=== PATIENT | male | born 1945 | race Caucasian/White ===

== ENCOUNTER 2023-02-03 08:25 | Day surgery (SDC) | payer MEDICARE, OTHER, SELFPAY ==
[2023-01-28 09:04] VITALS: BMI 28.9
--- NOTE | 2023-01-31 08:01 | MHC.SHP ---
Pre-Procedural Eval Section A Date of Service: 01/31/23 The patient is an INPATIENT: No Changes since office visit: No Cold of Flu in the past 2 weeks, No New Medical Problems, No Changes in Medication and No Patient answered all questions The History & Physical has been completed within 30 days and I have reviewed it.: Yes Section B Chief Complaint: Age-related nuclear cataract, left eye Allergies: Allergies Allergy/AdvReac Type Severity Reaction Status Date / Time No Known Allergies Allergy Verified 01/28/23 08:47 Plan Diagnosis/Plan: Unchanged I have reviewed the history and physical and performed a pertinent physical examination on my patient. No changes have occurred unless specified. Time Spent With Patient Time: Total time managing care of this patient today ____ minutes.
[2023-02-03 10:16] VITALS: BP 147/65; PULSE 54; RESP 16; TEMP 36.4; O2SAT 99
--- NOTE | 2023-02-03 10:17 | P.CONAN_ITS ---
[facility] Past Medical History Medical History (Updated 01/28/23 @ 09:06 by Zoey Srivastava RN) [place] (hard of hearing) Basal cell carcinoma Gout Osteoarthritis Elevated cholesterol DVT (deep venous thrombosis) Chronic renal insufficiency Bladder cancer Myocardial infarction CAD (coronary artery disease) Family History Family history of problems with anesthesia: No Surgical History Surgical History (Updated 01/28/23 @ 09:02 by Zoey Srivastava RN) Hx of transurethral destruction of bladder lesion H/O colonoscopy Hx of appendectomy History of total replacement of both hip joints History of left nephrectomy History of back surgery History of inferior vena caval filter placement Hx of radical prostatectomy Hx of heart artery stent History of Problems with Anesthesia: No Social History Social History (Updated 01/28/23 @ 08:37 by Zoey Srivastava RN) Are you a primary foster care case manager to a significant other at home: No Do you presently have visiting nurse or other home services: No Patient Tobacco Use Status: Former Tobacco user Quit Date: ~age 37 Tobacco use type: Cigarette Use of substances other than those prescribed or required for medical reasons: No Have you been hit, kicked, punched, or otherwise hurt by someone within the past year? If so, by whom?: No Are you DNR?: No Advance Directives Information Provided: Yes (as above noted-will bring copy DOS) Advance Directives on File: No Recently lost weight without trying: No Eating poorly because of decreased appetite: No Nutrition Risks: Surgical patient >75years Poor oral hygiene: No (upper & lower full denture) Meds Allergies Allergy/AdvReac Type Severity Reaction Status Date / Time No Known Allergies Allergy Verified 01/28/23 08:47 Active Medications: Current Medications Povidone Iodine (Povidone Iodine 5 % Ophth Soln 30 Ml Bottle) 1 appl EYE-LEFT PREOP PRN PRN Reason: Pre-Op Surgical Implant Prophy Home Medications Medication Instructions Recorded Confirmed Last Taken Type acetaminophen 650 mg 1,300 mg PO Q8H 01/28/23 01/28/23 Unknown History tablet,extended release aspirin 81 mg tablet,delayed 81 mg PO DAILY 01/28/23 01/28/23 Unknown History release atorvastatin 40 mg tablet 40 mg PO DAILY 01/28/23 01/28/23 Unknown History calcitriol 0.25 mcg capsule 0.25 mcg PO Q2D 01/28/23 01/28/23 Unknown History cholecalciferol (vitamin D3) 25 25 mcg PO DAILY 01/28/23 01/28/23 Unknown History mcg (1,000 unit) capsule (Vitamin D3) cyanocobalamin (vitamin B-12) 1,000 mcg PO DAILY 01/28/23 01/28/23 Unknown History 1,000 mcg tablet (Vitamin B-12) lisinopril 5 mg tablet 5 mg PO DAILY 01/28/23 01/28/23 Unknown History triamcinolone acetonide 0.025 % 1 appl topical DAILY PRN itch 01/28/23 01/28/23 Unknown History topical cream Exam Exam Date and Time: February 03, 2023 1017 Height,Weight and Vital Signs: Height 6 ft Weight 96.615 kg Airway Mallampati Class: II TM Dist: >3cm Denture: Upper and Lower Assessment and Plan Assessment Anesthesia Assessment: Anesthesia Plan Discussed and Chart Reviewed Final Anesthetic Review Family History of Problems with Anesthesia: No History of Problems with Anesthesia: No NPO: Yes ASA Class: III Final Preanesthetic Review: No Changes in Pt Med Stat, Meds/Allgs Chart Reviewed, Consent Obtained/Reviewed and Anes Risks/Benef Reviewed Patient Risk: Intermediate Procedure Risk: Low Anesthetic Plan Anesthetic Plan: MAC: Disposition: Standard PACU
[2023-02-03] MEDS: Tetracaine HCl/PF 0.5% Oph Sol 4 ML DROPS 1 DROP EYE-LEFT (10:24)
[2023-02-03] MEDS: Cyclopentolate 1 % Ophth Sol 2 ML DRPBTL 1 DROP EYE-LEFT ×3 (10:25→10:30)
[2023-02-03] MEDS: Tropicamide 1 % Ophth Sol 3 ML BTL 1 DROP EYE-LEFT ×3 (10:25→10:31)
[2023-02-03] MEDS: Ketorolac Tromethamine 0.5% Op 5 ML DROPS 1 DROP EYE-LEFT ×3 (10:26→10:31)
[2023-02-03] MEDS: Phenylephrine HCL 2.5% Oph SoL 2 ML BOTTLE 1 DROP EYE-LEFT ×3 (10:27→10:32)
--- NOTE | 2023-02-03 10:36 | HO.PNOPHT ---
Ophthalmology Procedure Procedure Date of Service: 02/03/23 Ophthalmology Viscoelastic: Healon Duet Dual Pack Pro Ophthalmology Lenses: TECNIS [id number] (22.5) Procedure Notes: PREOPERATIVE DIAGNOSIS: Decreased visual acuity left eye secondary to cataract POSTOPERATIVE DIAGNOSIS: Same PROCEDURE: Left cataract extraction with intraocular lens insertion SURGEON: Cody Dang M.D. ANESTHESIA: Topical/MAC ESTIMATED BLOOD LOSS: None COMPLICATIONS: None After obtaining informed consent, the patient was brought to the operation room suite and placed in the supine position. After adequate sedation per anesthesia, topical drops of Tetracaine were given to the left eye. The eye was then prepped and draped in the usual sterile fashion. The operating room microscope was then positioned over the operative eye and a lid speculum placed. A paracentesis was created. Viscoelastic was then instilled into the anterior chamber. A three plane incision was then created temporally, utilizing a 2.85 mm keratome. Capsulotomy forceps were then utilized to create a circular tear capsulotomy. Hydrodissection and hydrodelineation were carried out until adequate mobilization of the nucleus occurred. Phacoemulsification was then utilized to remove the dense central nucleus followed by removal of the cortical material utilizing the automated aspiration irrigation unit. Viscoat elastic was instilled into the posterior capsular bag followed by placement of a posterior chamber intraocular lens without difficulty. The residual Viscoat elastic was then removed utilizing the automated IA machine. The wound was check and found to be watertight. The patient tolerated the procedure well and the lid speculum was removed. Intracameral injection of Vigamox 0.1 mL followed by a subtenon injection of Kenalog-40 0.2 mL were administered. The patient will be seen in the a.m.
[2023-02-03 10:57] VITALS: BP 154/62; PULSE 60; RESP 16; TEMP 36.2; O2SAT 100
== END 2023-02-03 11:16 | disposition home or self-care (01) ==
PROVIDERS: PCP Internal Medicine; Visit Provider Ophthalmology
PROC: (CPT 66985; principal; 2023-02-03 10:50)
DX: H25.12 Age-related nuclear cataract, left eye (principal); H52.4 Presbyopia; H43.392 Other vitreous opacities, left eye; H18.413 Arcus senilis, bilateral; I25.10 Atherosclerotic heart disease of native coronary artery without angina pectoris; Z95.5 Presence of coronary angioplasty implant and graft; I25.2 Old myocardial infarction; E78.00 Pure hypercholesterolemia, unspecified; C67.9 Malignant neoplasm of bladder, unspecified; Z79.82 Long term (current) use of aspirin; Z79.899 Other long term (current) drug therapy; Z98.890 Other specified postprocedural states; Z87.891 Personal history of nicotine dependence
CPT/HCPCS: 66984; J2250; J3010; J3301; V2632

== ENCOUNTER 2023-02-10 09:07 | Day surgery (SDC) | payer MEDICARE, OTHER, SELFPAY ==
[2023-01-28 09:07] VITALS: BMI 28.9
--- NOTE | 2023-02-07 07:55 | MHC.SHP ---
Pre-Procedural Eval Section A Date of Service: 02/07/23 The patient is an INPATIENT: No Changes since office visit: No Cold of Flu in the past 2 weeks, No New Medical Problems, No Changes in Medication and No Patient answered all questions The History & Physical has been completed within 30 days and I have reviewed it.: Yes Section B Chief Complaint: Age-related nuclear cataract, right eye Allergies: Allergies Allergy/AdvReac Type Severity Reaction Status Date / Time No Known Allergies Allergy Verified 01/28/23 08:47 Plan Diagnosis/Plan: Unchanged I have reviewed the history and physical and performed a pertinent physical examination on my patient. No changes have occurred unless specified. Time Spent With Patient Time: Total time managing care of this patient today ____ minutes.
--- NOTE | 2023-02-07 09:46 | P.CONAN_ITS ---
Documented by User: Yani Xiao NP 02/07/23 09:50 HPI - Anesthesia Eval Consult details Narrative: 77yo M for Right Cataract Extraction IOL Insertion Medically cleared Left eye 02/03/23: Fent 50, Midaz 0.5 PMFSH Past Medical History Medical History [place]) Basal cell carcinoma Gout Osteoarthritis Elevated cholesterol DVT (deep venous thrombosis) Chronic renal insufficiency Bladder cancer Myocardial infarction CAD (coronary artery disease) Family History Family history of problems with anesthesia: No Surgical History Surgical History Hx of transurethral destruction of bladder lesion H/O colonoscopy Hx of appendectomy History of total replacement of both hip joints History of left nephrectomy History of back surgery History of inferior vena caval filter placement Hx of radical prostatectomy Hx of heart artery stent History of Problems with Anesthesia: No Social History Social History Are you a primary post acute care nurse practitioner to a significant other at home: No Do you presently have visiting nurse or other home services: No Patient Tobacco Use Status: Former Tobacco user Quit Date: ~age 37 Tobacco use type: Cigarette Use of substances other than those prescribed or required for medical reasons: No Are you DNR?: No Advance Directives Information Provided: Yes (as above noted-will bring copy DOS) Advance Directives on File: No Recently lost weight without trying: No Eating poorly because of decreased appetite: No Nutrition Risks: Surgical patient >75years Poor oral hygiene: No (upper & lower full denture) Meds Allergies Allergy/AdvReac Type Severity Reaction Status Date / Time No Known Allergies Allergy Verified 01/28/23 08:47 Home Medications Medication Instructions Recorded Confirmed Last Taken Type acetaminophen 650 mg 1,300 mg PO Q8H 01/28/23 01/28/23 Unknown History tablet,extended release aspirin 81 mg tablet,delayed 81 mg PO DAILY 01/28/23 01/28/23 Unknown History release atorvastatin 40 mg tablet 40 mg PO DAILY 01/28/23 01/28/23 Unknown History calcitriol 0.25 mcg capsule 0.25 mcg PO Q2D 01/28/23 01/28/23 Unknown History cholecalciferol (vitamin D3) 25 25 mcg PO DAILY 01/28/23 01/28/23 Unknown History mcg (1,000 unit) capsule (Vitamin D3) cyanocobalamin (vitamin B-12) 1,000 mcg PO DAILY 01/28/23 01/28/23 Unknown History 1,000 mcg tablet (Vitamin B-12) lisinopril 5 mg tablet 5 mg PO DAILY 01/28/23 01/28/23 Unknown History triamcinolone acetonide 0.025 % 1 appl topical DAILY PRN itch 01/28/23 01/28/23 Unknown History topical cream Exam Exam Date and Time: February 07, 2023 0946 Height,Weight and Vital Signs: Height 6 ft Weight 96.615 kg Assessment and Plan Assessment Anesthesia Assessment: Chart Reviewed Final Anesthetic Review Family History of Problems with Anesthesia: No History of Problems with Anesthesia: No Documented by User: Duyen Pitt MD 02/10/23 10:39 [facility] Past Medical History Medical History [place]) Basal cell carcinoma Gout Osteoarthritis Elevated cholesterol DVT (deep venous thrombosis) Chronic renal insufficiency Bladder cancer Myocardial infarction CAD (coronary artery disease) Surgical History Surgical History Hx of transurethral destruction of bladder lesion H/O colonoscopy Hx of appendectomy History of total replacement of both hip joints History of left nephrectomy History of back surgery History of inferior vena caval filter placement Hx of radical prostatectomy Hx of heart artery stent Social History Social History Are you a primary post acute care nurse practitioner to a significant other at home: No Do you presently have visiting nurse or other home services: No Patient Tobacco Use Status: Former Tobacco user Quit Date: ~age 37 Tobacco use type: Cigarette Use of substances other than those prescribed or required for medical reasons: No Are you DNR?: No Advance Directives Information Provided: Yes (as above noted-will bring copy DOS) Advance Directives on File: No Recently lost weight without trying: No Eating poorly because of decreased appetite: No Nutrition Risks: Surgical patient >75years Poor oral hygiene: No (upper & lower full denture) Meds Allergies Allergy/AdvReac Type Severity Reaction Status Date / Time No Known Allergies Allergy Verified 01/28/23 08:47 Home Medications Medication Instructions Recorded Confirmed Last Taken Type acetaminophen 650 mg 1,300 mg PO Q8H 01/28/23 01/28/23 Unknown History tablet,extended release aspirin 81 mg tablet,delayed 81 mg PO DAILY 01/28/23 01/28/23 Unknown History release atorvastatin 40 mg tablet 40 mg PO DAILY 01/28/23 01/28/23 Unknown History calcitriol 0.25 mcg capsule 0.25 mcg PO Q2D 01/28/23 01/28/23 Unknown History cholecalciferol (vitamin D3) 25 25 mcg PO DAILY 01/28/23 01/28/23 Unknown History mcg (1,000 unit) capsule (Vitamin D3) cyanocobalamin (vitamin B-12) 1,000 mcg PO DAILY 01/28/23 01/28/23 Unknown History 1,000 mcg tablet (Vitamin B-12) lisinopril 5 mg tablet 5 mg PO DAILY 01/28/23 01/28/23 Unknown History triamcinolone acetonide 0.025 % 1 appl topical DAILY PRN itch 01/28/23 01/28/23 Unknown History topical cream Exam Airway Mallampati Class: III (edentulous) TM Dist: >3cm Neck ROM: Full Denture: Upper and Lower Loose/Missing/Broken Teeth: Yes, Upper and Lower Heart: RRR Lungs: CTA Assessment and Plan Assessment Anesthesia Assessment: Anesthesia Plan Discussed Final Anesthetic Review NPO: Yes ASA Class: III Final Preanesthetic Review: Meds/Allgs Chart Reviewed, Consent Obtained/Reviewed and Anes Risks/Benef Reviewed Patient Risk: Intermediate Procedure Risk: Low Anesthetic Plan Anesthetic Plan: MAC: Disposition: Standard PACU
[2023-02-10 10:20] VITALS: BP 149/65; PULSE 56; RESP 19; TEMP 36.1; O2SAT 97
[2023-02-10] MEDS: Tetracaine HCl/PF 0.5% Oph Sol 4 ML DROPS 1 DROP EYE-RIGHT (10:32)
[2023-02-10] MEDS: Lactated Ringers 500 ML 50 ML IV (10:32)
[2023-02-10] MEDS: Ketorolac Tromethamine 0.5% Op 5 ML DROPS 1 DROP EYE-RIGHT ×3 (10:32→10:33)
[2023-02-10] MEDS: Phenylephrine HCL 2.5% Oph SoL 2 ML BOTTLE 1 DROP EYE-RIGHT ×3 (10:32→10:33)
[2023-02-10] MEDS: Cyclopentolate 1 % Ophth Sol 2 ML DRPBTL 1 DROP EYE-RIGHT ×3 (10:32→10:33)
[2023-02-10] MEDS: Tropicamide 1 % Ophth Sol 3 ML BTL 1 DROP EYE-RIGHT ×3 (10:32→10:33)
--- NOTE | 2023-02-10 10:57 | PC.NURSE ---
emptied urostomy for 200ml clear yellow urine
--- NOTE | 2023-02-10 11:40 | HO.PNOPHT ---
Ophthalmology Procedure Procedure Date of Service: 02/10/23 Ophthalmology Viscoelastic: Healjameel Duet Dual Pack Pro Ophthalmology Lenses: TECNIS [id number] (22.5) Procedure Notes: PREOPERATIVE DIAGNOSIS: Decreased visual acuity right eye secondary to cataract POSTOPERATIVE DIAGNOSIS: Same PROCEDURE: Right cataract extraction with intraocular lens insertion SURGEON: Cody Dang M.D. ANESTHESIA: Topical/MAC ESTIMATED BLOOD LOSS: None COMPLICATIONS: None After obtaining informed consent, the patient was brought to the operating room suite and placed in the supine position. After adequate sedation per anesthesia, topical drops of Tetracaine were given to the right eye. The eye was then prepped and draped in the usual sterile fashion. The operating room microscope was then positioned over the operative eye and a lid speculum placed. A paracentesis was created. Viscoelastic was then instilled into the anterior chamber. A three plane incision was then created temporally, utilizing a 2.85 mm keratome. Capsulotomy forceps were then utilized to create a circular tear capsulotomy. Hydrodissection and hydrodelineation were carried out until adequate mobilization of the nucleus occurred. Phacoemulsification was then utilized to remove the dense central nucleus followed by removal of the cortical material utilizing the automated aspiration irrigation unit. Viscoelastic was instilled into the posterior capsular bag followed by placement of a posterior chamber intraocular lens without difficulty. The residual Viscoelastic was then removed utilizing the automated IA machine. The wound was checked and found to be watertight. The patient tolerated the procedure well and the lid speculum was removed. Intracameral injection of Vigamox 0.1 mL followed by a subtenon injection of Kenalog-40 0.2 mL were administered. The patient will be seen in the a.m.
[2023-02-10 12:05] VITALS: BP 135/59; PULSE 60; RESP 18; TEMP 36.4; O2SAT 99
== END 2023-02-10 12:37 | disposition home or self-care (01) ==
PROVIDERS: PCP Internal Medicine; Visit Provider Ophthalmology
PROC: (CPT 66985; principal; 2023-02-10 11:40)
DX: H25.11 Age-related nuclear cataract, right eye (principal); H52.4 Presbyopia; H43.391 Other vitreous opacities, right eye; H11.001 Unspecified pterygium of right eye; H18.413 Arcus senilis, bilateral; N18.30 Chronic kidney disease, stage 3 unspecified; I25.10 Atherosclerotic heart disease of native coronary artery without angina pectoris; Z95.5 Presence of coronary angioplasty implant and graft; I25.2 Old myocardial infarction; E78.00 Pure hypercholesterolemia, unspecified; C67.9 Malignant neoplasm of bladder, unspecified; M10.9 Gout, unspecified; Z79.82 Long term (current) use of aspirin; Z79.899 Other long term (current) drug therapy; Z95.828 Presence of other vascular implants and grafts; Z98.890 Other specified postprocedural states; Z87.891 Personal history of nicotine dependence
CPT/HCPCS: 66984; J2250; J2405; J3010; J3301; V2632